=== PATIENT | female | born 2000 | race Two or more races ===

== ENCOUNTER 2019-02-21 08:01 | Day surgery (SDC) | payer OTHER ==
[2019-02-20 10:28] LABS: HEMATOCRIT 35.9 % (36.0-47.0); HEMOGLOBIN 11.5 g/dL (12.0-15.5); MEAN CORPUSCULAR HEMOGLOBIN 24.1 pg (27.0-33.4); MEAN CORPUSCULAR HGB CONC 31.9 g/dL (32.0-36.0); MEAN CORPUSCULAR VOLUME 76 fl (80-97); PLATELET COUNT 283 10^3/uL (150-450); RED BLOOD COUNT 4.76 10^6/uL (3.72-5.28); RED CELL DISTRIBUTION WIDTH 14.3 % (11.5-14.0); WHITE BLOOD COUNT 6.1 10^3/uL (4.0-10.5)
[~2019-02-21 08:01] MED LIST: CEFAZOLIN SODIUM 1 GM in DEXTROSE 5%-WATER 50 ML IV PRN; LACTATED RINGERS 1000 ML IV PRN; LIDOCAINE 0.5% INJ-PF (5 MG/ML) 50 ML SDV SUBCUT PRN
[2019-02-21] MEDS ORDERED: MORPHINE SULFATE 10 MG/ML INJ ONE (11:14)
[2019-02-21] MEDS ORDERED: PROPOFOL INJ 200 MG/20 ML VIAL IV ONE (11:14)
[2019-02-21] MEDS ORDERED: MIDAZOLAM 2 MG/2 ML INJ ONE (11:14)
[2019-02-21] MEDS ORDERED: FENTANYL CITRATE INJ/PF 250 MCG/5 ML AMPULE ONE (11:14)
[2019-02-21] MEDS ORDERED: LIDOCAINE 1%/EPINEPHRINE INJ 20 ML VIAL ONE (11:16)
[2019-02-21] MEDS ORDERED: MICROFIBRILLAR COLLAGEN 1 GM PACK ONE (11:16)
[2019-02-21] MEDS ORDERED: MEPERIDINE HCL/PF INJ 25 MG/1 ML DISP.SYRIN IV PRN (12:02)
[2019-02-21] MEDS ORDERED: DEXAMETHASONE SOD PHOSPHATE INJ 4 MG/1 ML VIAL ONE (12:02)
[2019-02-21] MEDS ORDERED: PROMETHAZINE HCL INJ 25 MG/1 ML VIAL IV PRN (12:02)
[2019-02-21] MEDS ORDERED: SUCCINYLCHOLINE CHLORIDE INJ 200 MG/10 ML VIAL ONE (12:02)
[2019-02-21] MEDS ORDERED: DIPHENHYDRAMINE HCL 50 MG/ML VIAL IV PRN (12:02)
[2019-02-21] MEDS ORDERED: GLYCOPYRROLATE 1 MG/5 ML VIAL ONE (12:02)
[2019-02-21] MEDS ORDERED: FENTANYL CITRATE INJ/PF 100 MCG/2 ML AMPUL IV PRN (12:02)
[2019-02-21] MEDS ORDERED: MORPHINE SULFATE 10 MG/ML INJ IV PRN (12:02)
[2019-02-21] MEDS ORDERED: LIDOCAINE 2% INJ-PF (20 MG/ML) 2 ML AMPUL ONE (12:02)
[2019-02-21] MEDS ORDERED: LIDOCAINE 1%/EPINEPHRINE INJ 20 ML VIAL INJ ONE (12:12)
--- NOTE | 2019-02-21 12:34 | Discharge Summary ---
Discharge Summary (SDC) - Discharge Final Diagnosis: Fibroadenoma left breast Date of Surgery: 02/21/19 Discharge Date: 02/21/19 Condition: Good Forms: ASU Anesthesia D/C Instruction, Discharge POC-Surgical Service Treatment or Instructions: Leave Steri-Strips on; may take Tylenol or Motrin PRN pain; wear supportive bra; follow-up with [facility] in 1 week Referrals: BREANN PARKER MD [ACTIVE STAFF] - Discharge Diet: As Tolerated Discharge Activity: Activity As Tolerated Home Care Assistance: None Needed Report the Following to Your Physician Immediately: Shortness of Breath, Increase in Pain, Fever over 101 Degrees
--- NOTE | 2019-02-21 12:37 | Operative Report ---
Operative Report DATE OF SURGERY: 02/21/19 PREOPERATIVE DIAGNOSIS: Left breast mass consistent with fibroadenoma; status p ost minimally invasive biopsy POSTOPERATIVE DIAGNOSIS: Same OPERATION: Ultrasound directed open excisional biopsy of left breast mass SURGEON: BREANN PARKER ANESTHESIA: GA TISSUE REMOVED OR ALTERED: Left breast mass COMPLICATIONS: None INTRAOPERATIVE FINDINGS: See below PROCEDURE: The patient was seen in the preop holding area where the left breast was marked. She was then taken the main operating room and general anesthesia was induced. Left arm was abducted, left breast and axilla prepped and draped in sterile fashion with Betadine. Using ultrasound as a guide, the left breast mass consistent with fibroadenoma approximately 2 and half centimeters in diameter was identified in the 3:30 position, left breast, approximately 7 to 8 cm the nipple. The skin was anesthetized 1% plain lidocaine. A 2 cm curvilinear incision was made over the mass. Using electrocautery as dissection, the subcutaneous tissue and superficial breast tissue was divided. A 2-0 Prolene suture was placed in the substance of the mass for leverage. Using electrocautery, the mass was removed from the surrounding breast tissue. The mass was removed from the left breast, opened with a #10 blade longitudinally. This specimen was sent in formalin to pathology. Wound was checked for hemostasis and it was secured. The wound was closed with a 3-0 Vicryl and 4-0 Ethilon suture. Benzoin and Steri-Strips applied. Patient tolerated the procedure well, extubated, taken recovery room stable condition.
[2019-02-21 14:03] VITALS: BP 122/75
== END 2019-02-21 14:03 | disposition home or self-care (01) ==
LOC: OROUT 08:01
PROVIDERS: ATTEND Surgery
DX: D24.2 Benign neoplasm of left breast (principal); Z87.891 Personal history of nicotine dependence; F17.210 Nicotine dependence, cigarettes, uncomplicated; J45.909 Unspecified asthma, uncomplicated
CPT/HCPCS: 36415; 85027; 81025; 88305 ×2; 19120; J2250; J0690; J1100; J3010; J3490 ×3; J0330; J7060; J2704; 400; 88307; J2270